=== PATIENT | male | born 1990 | race American Indian/Alaskan Native ===

== ENCOUNTER 2021-07-26 05:22 | Emergency (ER) | payer MEDICAID, OTHER, SELFPAY ==
[2021-07-26 05:31] VITALS: BP 147/78; PULSE 78; RESP 18; TEMP 36.7; O2SAT 95; BMI 20.3
--- NOTE | 2021-07-26 05:36 | ED.GENADULT ---
HPI - General Adult General Chief complaint: Eye Problems Stated complaint: soap in eye Time Seen by Provider: 07/26/21 05:31 Source: patient Mode of arrival: Ambulatory Limitations: no limitations History of Present Illness HPI narrative: Patient is a 31-year-old male who is here for evaluation of a chemical exposure to his left eye. He was at work. Was not wearing safety goggles. Was using a a solution of what he states both has soap and bleach in it to clean parts. He was using a brush. He states that 1 drop came up and hit him in his left eye. He does not wear contact lenses. Is supposed to wear corrective lenses but does not on a regular basis. Has never had any eye surgeries in the past. He did wash it with water prior to arrival. He states that he is still having some irritation to the left eye. He reports no other skin symptoms. Related Data Home Medications Medication Instructions Recorded Confirmed [UNKNOWN MED BIPOLAR] #0 09/26/12 Review of Systems Eyes Eyes: Reports as per HPI and Reports system reviewed and no additional complaints, except as documented ENT Ears, Nose, Mouth, and Throat: Reports system reviewed and no additional complaints, except as documented and Reports as per HPI Integumentary/Breasts Skin/Breast: Reports system reviewed and no additional complaints, except as documented and Reports as per HPI Patient History Medical History Healthy adult Social History Smoking Status: Never smoker Exam Initial Vital Signs Initial Vital Signs: Vital Signs Temperature 98.0 F 07/26/21 05:31 Pulse Rate 78 07/26/21 05:31 Respiratory Rate 18 07/26/21 05:31 Blood Pressure 147/78 H 07/26/21 05:31 Pulse Oximetry 95 07/26/21 05:31 Const General: cooperative and healthy appearing [facility] Head: normal to inspection and normocephalic Eyes Other: Pupils equal round reactive to light bilaterally. No foreign body noted in the left eye. Some redness of the conjunctiva and sclera. Of the left eye was 7. No no uptake with dye. Visual acuity noted. Eyelids unremarkable. Skin General: no rashes or lesions noted Extrem General: normal to inspection Course Orders Ordered: Discontinued Medications Fluorescein Sodium (Fluorescein 1 Mg Strip) 1 mg EYE-BOTH NOW ONE Stop: 07/26/21 05:32 Proparacaine HCl (Proparacaine 0.5% Ophth Merly) 1 drops EYE-LEFT NOW ONE Stop: 07/26/21 05:32 Vital Signs Vital signs: Vital Signs - 8 hr 07/26/21 05:31 Temperature 98.0 F Pulse Rate 78 Respiratory Rate 18 Blood Pressure 147/78 H Pulse Oximetry 95 Medical Decision Making MDM Narrative Medical decision making narrative: Prior to irrigation here the pH in his left eye was 7. Visual acuity was noted and was actually better in his affected eye than in his right eye. There was no uptake noted with staining. Patient flushed his eye further here in the ER and states that he feels much better with doing that. Will send home with erythromycin ointment. He was given return precautions. He expressed understanding and agreement. Discharge Plan Departure Patient Disposition: Home Clinical Impression: Chemical exposure of eye Activity Restrictions/Additional Instructions: I recommend that you use the erythromycin ointment once again later on today. Does but a small amount in your left eye. No restrictions on any activities. If you start to have worsening symptoms to include blurry vision or change in vision or increased irritation or redness to left eye you do need to be re-evaluated here in the emergency department. Prescriptions: No Action [UNKNOWN MED BIPOLAR] Qty: 0 0RF
[2021-07-26] MEDS: PROPARACAINE 0.5% OPHTH SOL 1 DROPS EYE-LEFT (06:04)
[2021-07-26] MEDS: FLUORESCEIN 1 MG STRIP EYE-BOTH (06:05)
[2021-07-26] MEDS: ERYTHROMYCIN OPHTH 1 GM OINT 1 APPLIC EYE-LEFT (06:07)
== END 2021-07-26 06:12 | disposition home or self-care (01) ==
PROVIDERS: Emergency Provider Emergency Medicine
DX: H57.12 Ocular pain, left eye (principal); Z77.098 Contact with and (suspected) exposure to other hazardous, chiefly nonmedicinal, chemicals; Y99.0 Civilian activity done for income or pay
CPT/HCPCS: 99282